=== PATIENT | female | born 1995 | race Caucasian/White ===

== ENCOUNTER 2018-02-18 01:52 | Emergency (ER) | payer OTHER ==
[~2018-02-18] VITALS: Ht 160 cm; Wt 56.6 kg
[2018-02-18 01:57] VITALS: TEMP 36.8; Ht 160 cm; Wt 56.6 kg
[2018-02-18] MEDS ORDERED: MULT-1027 PO (02:18)
[2018-02-18] MEDS ORDERED: BCPILLS PO (02:18)
[2018-02-18] MEDS ORDERED: MoRPHine SULFATE 2 MG/ML CARP IV STA (02:24)
[2018-02-18] MEDS ORDERED: ONDANSETRON INJ 2 MG/ML 2 ML VIAL IV STA (02:24)
[2018-02-18] MEDS ORDERED: SODIUM CHLORIDE 0.9% 1000ML 1,000 ML IV ONE ×2 (02:30)
[2018-02-18 02:34] LABS: BASO % 0.1 %; BASO ABS # 0.01 K/uL (0-0.2); EOS % 0.1 %; EOS ABS # 0.02 K/uL (0-0.5); HEMATOCRIT 40.2 % (37-47); HEMOGLOBIN 13.7 g/dL (12.0-16.0); IG# 0.04 K/uL (0.00-0.02); LYMPH % 4.4 %; LYMPH ABS # 0.66 K/uL (1.2-3.4); MEAN CELL VOLUME 90.7 fL (80-100); MEAN CORPUSCULAR HEMOGLOBIN 30.9 pg (25-34); MEAN CORPUSCULAR HGB CONC 34.1 g/dl (32-36); MEAN PLATELET VOLUME 9.6 fL (7.4-10.4); MONO % 4.2 %; MONO ABS # 0.62 K/uL (0.11-0.59); NEUT % 90.9 %; NEUT ABS # 13.57 K/uL (1.4-6.5); PLATELET COUNT 362 K/uL (130-400); RED CELL DISTRIBUTION WIDTH CV 13.2 % (11.5-14.5); RED CELL DISTRIBUTION WIDTH SD 44.3 fL (36.4-46.3); WHITE BLOOD COUNT 14.92 K/uL (4.8-10.8)
[2018-02-18 03:01] LABS: CALCIUM 9.1 mg/dl (8.5-10.1); CREATININE 1.09 mg/dl (0.60-1.20)
[2018-02-18 03:04] LABS: TOTAL PROTEIN 8.3 gm/dl (6.4-8.2)
[2018-02-18] MEDS ORDERED: ONDA4TAB10 SL (04:04)
[2018-02-18] MEDS ORDERED: NORCO 5/325MG HOME PACK PO ONE (04:15)
[2018-02-18] MEDS ORDERED: ONDANSETRON HOME PACK 4MG OD TAB PO ONE (04:15)
[2018-02-18 04:24] VITALS: BP 110/60; PULSE 96; O2SAT 98
--- NOTE | 2018-02-18 07:12 | DIAGNOSTIC IMAGING REPORT ---
PA CHEST WITH ABDOMINAL SERIES CLINICAL HISTORY: Nausea and vomiting. Diarrhea. Cramping abdominal pain. FINDINGS: A PA chest radiograph is obtained. No prior studies are available for comparison at the time of dictation. The cardiomediastinal silhouette is unremarkable. The lungs and pleural spaces are clear. No pneumothorax is seen. The bony thorax is grossly intact. There is S-shaped thoracolumbar scoliosis. A naval piercing is noted. Supine and erect abdominal radiographs are obtained. No prior studies are available for comparison at the time of dictation. There is a nonobstructed abdominal bowel gas pattern. No evidence of intraperitoneal free air is seen. There are no abnormal abdominal calcifications. The lumbosacral spine and bony pelvis appear intact. IMPRESSION: 1. No active disease in the chest. 2. Nonobstructed abdominal bowel gas pattern. Electronically signed by: Ander Blair M.D. 02/18/2018 7:11 AM Dictated Date/Time: 02/18/2018 7:10 AM
--- NOTE | 2018-02-18 08:04 | EMERGENCY ROOM VISIT NOTE ---
History First contact with patient: 02:09 Chief Complaint: ABDOMINAL PAIN Stated Complaint: SHARP STOMACH PAINS,VOMITING,DIARRHEA History of Present Illness The patient is a 22 year old female who presents to the Emergency Room with complaints of nausea, vomiting, and diarrhea that began acutely about 2 hours ago. The patient has upper abdominal discomfort with this, which began after she started vomiting. The patient feels lightheaded and is not able to tolerate fluids as this worsens her symptoms. She states that her discomfort started not long after she ate dinner tonight. She does not have lower abdominal pain. She does not have history of abdominal surgery. No recent fevers, chills, chest pain, chest tightness, or shortness of breath. The patient does not have history of colitis or GI diagnosis. She rates her discomfort a 5/10. Review of Systems More than 10 systems were reviewed and otherwise negative with the exception of history of present illness. Past Medical/Surgical History No chronic medical disease Family History No pertinent family history Social History Smoking Status: Never Smoker Occupation Status: [employer] student Current/Historical Medications Scheduled Control Pills ( Control Pills), 1 TAB PO DAILY Multiple Vitamin (Multi Vitamin), 1 TAB PO DAILY Ondasetron Odt (Zofran Odt), 4 MG SL Q6H Physical Exam Vital Signs Date Time Temp Pulse Resp B/P (MAP) Pulse Ox O2 Delivery O2 Flow Rate FiO2 02/18/18 04:24 96 17 110/60 98 02/18/18 02:49 94 16 99 Room Air 02/18/18 01:57 36.8 130 18 111/67 98 Room Air Physical Exam VITALS: Vitals are noted on the nurse's note and reviewed by myself. Vital signs with mild tachycardia GENERAL: Well-developed, well-nourished, white female, who is in no acute distress and resting comfortably. Patient is cooperative with the examination. HEAD: Normocephalic atraumatic. EARS: External ear normal. External auditory canals clear, tympanic membranes pearly brown without erythema or effusion bilaterally. EYES: Pupils equal round and reactive to light and accommodation. Conjunctivae without injection, sclerae without icterus. Extraocular movements intact. NOSE: Patent, turbinates without inflammation or discharge. MOUTH: Mucous membranes dry. Tonsils are not enlarged. Pharynx without erythema, blood, or exudate. Uvula midline. Airway patent. NECK: Supple without nuchal rigidity. No lymphadenopathy. No thyromegaly. Cervical spine is nontender. HEART: Regular rate and rhythm without murmurs gallops or rubs. LUNGS: Clear to auscultation bilaterally without wheezes, rales or rhonchi. No retractions or accessory muscle use. ABDOMEN: Positive normal bowel sounds x 4. Soft, nontender, without masses or organomegaly. No guarding or rebound tenderness. SKIN: The skin was without tenting of the skin Medical Decision & Procedures ER Provider Diagnostic Interpretation: PA CHEST WITH ABDOMINAL SERIES CLINICAL HISTORY: Nausea and vomiting. Diarrhea. Cramping abdominal pain. FINDINGS: A PA chest radiograph is obtained. No prior studies are available for comparison at the time of dictation. The cardiomediastinal silhouette is unremarkable. The lungs and pleural spaces are clear. No pneumothorax is seen. The bony thorax is grossly intact. There is S-shaped thoracolumbar scoliosis. A naval piercing is noted. Supine and erect abdominal radiographs are obtained. No prior studies are available for comparison at the time of dictation. There is a nonobstructed abdominal bowel gas pattern. No evidence of intraperitoneal free air is seen. There are no abnormal abdominal calcifications. The lumbosacral spine and bony pelvis appear intact. IMPRESSION: 1. No active disease in the chest. 2. Nonobstructed abdominal bowel gas pattern. Laboratory Results 02/18/18 02:05 Red Blood Count 4.43, Mean Corpuscular Volume 90.7, Mean Corpuscular Hemoglobin 30.9, Mean Corpuscular Hemoglobin Concent 34.1, Mean Platelet Volume 9.6, Neutrophils (%) (Auto) 90.9, Lymphocytes (%) (Auto) 4.4, Monocytes (%) (Auto) 4.2, Eosinophils (%) (Auto) 0.1, Basophils (%) (Auto) 0.1, Neutrophils # (Auto) 13.57, Lymphocytes # (Auto) 0.66, Monocytes # (Auto) 0.62, Eosinophils # (Auto) 0.02, Basophils # (Auto) 0.01 02/18/18 02:05 Test 02/18/18 02:03 02/18/18 02:05 Urine Color DK YELLOW Urine Appearance CLEAR (CLEAR) Urine pH 5.0 (4.5-7.5) Urine Specific [place] 1.035 (1.000-1.030) Urine Protein TRACE (NEG) Urine Glucose (UA) NEG (NEG) Urine Ketones 2+ (NEG) Urine Occult Blood NEG (NEG) Urine Nitrite NEG (NEG) Urine Bilirubin NEG (NEG) Urine Urobilinogen NEG (NEG) Urine Leukocyte Esterase NEG (NEG) Urine WBC (Auto) 1-5 /hpf (0-5) Urine RBC (Auto) 0-4 /hpf (0-4) Urine Hyaline Casts (Auto) 5-10 /lpf (0-5) Urine Epithelial Cells (Auto) >30 /lpf (0-5) Urine Bacteria (Auto) NEG (NEG) Urine Test NEG (NEG) White Blood Count 14.92 K/uL (4.8-10.8) Red Blood Count 4.43 M/uL (4.2-5.4) Hemoglobin 13.7 g/dL (12.0-16.0) Hematocrit 40.2 % (37-47) Mean Corpuscular Volume 90.7 fL (80-100) Mean Corpuscular Hemoglobin 30.9 pg (25-34) Mean Corpuscular Hemoglobin Concent 34.1 g/dl (32-36) Platelet Count 362 K/uL (130-400) Mean Platelet Volume 9.6 fL (7.4-10.4) Neutrophils (%) (Auto) 90.9 % Lymphocytes (%) (Auto) 4.4 % Monocytes (%) (Auto) 4.2 % Eosinophils (%) (Auto) 0.1 % Basophils (%) (Auto) 0.1 % Neutrophils # (Auto) 13.57 K/uL (1.4-6.5) Lymphocytes # (Auto) 0.66 K/uL (1.2-3.4) Monocytes # (Auto) 0.62 K/uL (0.11-0.59) Eosinophils # (Auto) 0.02 K/uL (0-0.5) Basophils # (Auto) 0.01 K/uL (0-0.2) RDW Standard Deviation 44.3 fL (36.4-46.3) RDW Coefficient of Variation 13.2 % (11.5-14.5) Immature Granulocyte % (Auto) 0.3 % Immature Granulocyte # (Auto) 0.04 K/uL (0.00-0.02) Anion Gap 7.0 mmol/L (3-11) Est Creatinine Clear Calc Drug Dose 66.9 ml/min Estimated GFR () 83.4 Estimated GFR (Non- 72.0 BUN/Creatinine Ratio 12.5 (10-20) Calcium Level 9.1 mg/dl (8.5-10.1) Total Bilirubin 0.7 mg/dl (0.2-1) Aspartate Amino Transf (AST/SGOT) 18 U/L (15-37) Alanine Aminotransferase (ALT/SGPT) 23 U/L (12-78) Alkaline Phosphatase 42 U/L (45-117) Total Protein 8.3 gm/dl (6.4-8.2) Albumin 4.0 gm/dl (3.4-5.0) Globulin 4.3 gm/dl (2.5-4.0) Albumin/Globulin Ratio 0.9 (0.9-2) Lipase 143 U/L (73-393) Medications Administered Medications (Trade) Dose Ordered Sig/Ira Route Start Time Stop Time Status Last Admin Dose Admin Sodium Chloride 1,000 ml @ 999 mls/hr Q1H1M ONCE IV 02/18/18 02:30 02/18/18 03:30 DC 02/18/18 02:46 999 MLS/HR Sodium Chloride 1,000 ml @ 999 mls/hr Q1H1M ONCE IV 02/18/18 02:30 02/18/18 03:30 DC 02/18/18 02:46 999 MLS/HR Ondansetron HCl (Zofran Inj) 4 mg NOW STAT IV 02/18/18 02:24 02/18/18 02:27 DC 02/18/18 02:46 4 MG Morphine Sulfate (MoRPHine SULFATE INJ) 2 mg NOW STAT IV 02/18/18 02:24 02/18/18 02:27 DC 02/18/18 02:47 2 MG Acetaminophen/ Hydrocodone Bitart (Satartia 5/325mg Home Pack) 1 homepack UD ONCE PO 02/18/18 04:15 02/18/18 04:16 DC 02/18/18 04:20 1 HOMEPACK Ondansetron HCl (ZOFRAN ODT 4MG Home Pack) 1 homepack UD ONCE PO 02/18/18 04:15 02/18/18 04:16 DC 02/18/18 04:20 1 [facility] ED Course Physical exam and history were performed. Nursing notes, EMR, and Medication List were personally reviewed. Patient appears to have nausea and vomiting for the past few hours. The patient does have some upper abdominal discomfort reported without significant reproducible tenderness. IV access was established and labs were obtained. Patient was given 2 L normal saline and IV Zofran. X-ray was performed. The patient's blood work is as above and was reviewed. She does have a slightly elevated white blood cell count, which is felt to be secondary to her vomiting. She does not have a significant anemia, bandemia, or gross electrolyte imbalance. Lipase and transaminases are not diagnostic. Urine is without evidence of infection. X-ray was reviewed by myself and radiology as showing no significant acute process. On reevaluation the patient felt significantly better. She was able to rest very comfortably in her ER bed without persistent nausea or vomiting. Her abdominal discomfort had subsided, and repeat abdominal exam continues to be soft and nontender. I discussed options of care with the patient. I explained that she did have an elevated white blood cell count and her symptoms could be related to an intra-abdominal infection, although a gastroenteritis was felt to be much more likely. I did offer CT imaging, and the patient deferred this, which appears reasonable. I will give her a short course of Zofran to use for home. She will need close follow-up by her PCP/[facility] for further management. She was certainly invited back to the ER with any new, worsening, or concerning symptoms. She is pleased with plan of care and rated her discomfort a 1/10 at the time of departure. The chart was completed utilizing [employer] Speech Voice Recognition Software. Grammatical errors, random word insertions, pronoun errors, and incomplete sentences are an occasional consequence of this system due to software limitations, ambient noise, and hardware issues. Any formal questions or concerns about the content, text, or information contained within the body of this dictation should be directly addressed to the provider for clarification. . Medical Decision Differential diagnosis: Etiologies such as gastroenteritis, food borne illness, infections, appendicitis , diverticulitis, inflammatory bowel disease, obstruction, GI bleed, biliary pathology, as well as others were entertained. Impression Primary Impression: Nausea and vomiting Departure Information Dispostion Home / Self-Care Condition GOOD Prescriptions Ondasetron Odt (ZOFRAN ODT) 4 Mg Tab 4 MG SL Q6H for Nausea, #12 TAB Prov: Phil Sharma PA-C 02/18/18 Forms HOME CARE DOCUMENTATION FORM, School Instructions, Additional Instructions: Patient was seen and evaluated today for medical care. May return to [facility] on 02/19/2018. Please excuse. IMPORTANT VISIT INFORMATION Patient Instructions My [facility] Additional Instructions You were seen and evaluated today on an emergency basis only. This is not a substitute for, or an effort to provide, complete comprehensive medical care. It is not possible to recognize and treat all injuries or illnesses in a single emergency department visit. For this reason it is recommended that you followup with [facility] in the next 1-2 days for recheck of your condition. Zofran 4 mg ODT: Dissolve 1 tablet every 6 hrs as needed for nausea. Satartia (hydrocodone/acetaminophen) 5/325 mg every 6 hours as needed for worsening breakthrough pain. Do not drink or drive on Satartia. This medication will likely make you tired. Do not take Satartia and Tylenol at the same time as both contain acetaminophen. Satartia may cause constipation. You may wish to take an [id number] stool softener like Colace if this occurs. Drink plenty of fluids and remain well-hydrated. Small sips over long periods of time will add up. Return to the emergency department if you develop fever over 100 F, persistent vomiting, worsening pain, or any other concerning symptoms. School Instructions Additional School Instructions: Patient was seen and evaluated today for medical care. May return to class on 02/19/2018. Please excuse.
== END 2018-02-18 04:26 | disposition home or self-care (01) ==
LOC: C.EDB 01:54 → C.EDA 04:26
DX: R11.2 Nausea with vomiting, unspecified (principal); Z79.3 Long term (current) use of hormonal contraceptives; Z79.899 Other long term (current) drug therapy